=== PATIENT | male | born 1945 | race Caucasian/White ===

== ENCOUNTER → 2024-01-20 10:14 | Outpatient (REF) | payer BC, SELFPAY | LOC: HWRAD 10:14 | PROVIDERS: ATTENDING PHYSICIAN Family Medicine | DX: M25.552 Pain in left hip (principal) | CPT/HCPCS: 73502 ==

== ENCOUNTER → 2025-02-22 13:30 | Outpatient (REF) | payer BC, SELFPAY | LOC: RAD 13:30 | PROVIDERS: ATTENDING PHYSICIAN Registered Nurse; FAMILY PHYSICIAN Family Medicine | DX: I73.9 Peripheral vascular disease, unspecified (principal) | CPT/HCPCS: 93922; 93925 ==